=== PATIENT | female | born 1975 | race Caucasian/White ===

== ENCOUNTER 2018-05-30 20:52 | Emergency (ER) | payer OTHER ==
[~2018-05-30] VITALS: Ht 160 cm; Wt 81.7 kg
[~2018-05-30 20:52] MED LIST: ALEVE220 MG PO; IBUPROFEN 400400 M2 PO; IMITREX100 MG PO
[2018-05-30 21:12] LABS: ABSOLUTE BASOPHILS 0.1 thou/uL (0.0-0.2); ABSOLUTE EOSINOPHILS 0.1 thou/uL (0.0-0.7); ABSOLUTE LYMPHOCYTES 2.6 thou/uL (0.8-5.3); ABSOLUTE MONOCYTES 0.9 thou/uL (0.0-1.2); ABSOLUTE NEUTROPHILS 4.7 thou/uL (1.6-8.1); BASOPHILS 1.1 %; EOSINOPHILS 0.8 %; HEMATOCRIT 39.4 % (37.0-47.0); HEMOGLOBIN 13.7 gm/dL (12.0-15.0); LYMPHOCYTES 31.1 %; MCH 30.2 pg (26.0-34.0); MCHC 34.6 g/dL (28.0-37.0); MCV 87.1 fL (80.0-100.0); MONOCYTES 10.9 %; MPV 9.8 fl. (7.2-11.1); NUCLEATED RBCS 0 /100WBC; PLATELET COUNT* 210 thou/uL (150-400); POLYS 56.1 %; RBC 4.53 mil/uL (4.20-5.00); RDW-CV 12.6 % (10.5-14.5); WBC 8.4 thou/uL (4.0-11.0)
[2018-05-30 21:26] LABS: ALKALINE PHOSPHATASE 93 U/L (46-116); ANION GAP 11 mmol/L (7-16); BUN 3 mg/dL (7-18); CALCIUM 8.5 mg/dL (8.5-10.1); CHLORIDE 94 mmol/L (98-107); CO2 27 mmol/L (21-32); CREATININE 0.9 mg/dL (0.6-1.3); GLUCOSE 104 mg/dL (70-99); POTASSIUM 3.4 mmol/L (3.5-5.1); SGOT 17 U/L (15-37); SGPT 22 U/L (30-65); SODIUM 132 mmol/L (136-145); TOTAL BILIRUBIN 0.5 mg/dL (<0.1-1.0); TOTAL PROTEIN 7.2 g/dL (6.4-8.2); TROPONIN-I LEVEL <0.06 ng/mL (<0.06)
[2018-05-30 21:40] LABS: APTT 39.7 Seconds (25.0-31.3); PROTIME 10.6 Seconds (9.20-11.50)
[2018-05-30 21:56] VITALS: BP 145/87
--- NOTE | 2018-05-31 14:17 | EKG ---
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 : 1975 Requested By: Leandro Inman Order Number: [id number] MD: Cory Castellanos Measurements Intervals [place] Rate: 119 P: 66 NH: 155 QRS: 65 QRSD: 103 T: -15 QT: 339 QTc: 478 Interpretive Statements Sinus tachycardia Probable left atrial enlargement Borderline repolarization abnormality No previous ECG available for comparison Electronically Signed On 05-31-2018 14:17:15 CDT by Cory Castellanos [email or web address] <ELECTRONICALLY SIGNED> By: Cory Castellanos MD, [facility] 05/31/18 1417 211 10 Cory Castellanos MD, FACC /EPI
== END 2018-05-30 21:56 | disposition home or self-care (01) ==
LOC: M.ERS 20:52
PROVIDERS: Family Medicine
DX: R56.9 Unspecified convulsions (principal); M32.9 Systemic lupus erythematosus, unspecified; D68.0 Von Willebrand disease

== ENCOUNTER 2020-08-09 22:06 | Emergency (ER) | payer OTHER ==
[~2020-08-09] VITALS: Ht 160 cm; Wt 95.3 kg
[2020-08-10 01:11] VITALS: BP 155/65
== END 2020-08-10 01:11 | disposition home or self-care (01) ==
LOC: M.ERS 22:06
DX: S90.01XA Contusion of right ankle, initial encounter (principal); L03.115 Cellulitis of right lower limb; W54.0XXA Bitten by dog, initial encounter; Y93.89 Activity, other specified; Y92.89 Other specified places as the place of occurrence of the external cause; Y99.8 Other external cause status